=== PATIENT | female | born 1960 | race Caucasian/White ===

== ENCOUNTER → 2016-10-25 | Outpatient (CLI) | payer BC ==
[~2016-10-25] MED LIST: HYDR-5688 PO
[2016-10-25 13:36] LABS: FERRITIN 71.3 ng/ml (8.0-388.0); THYROID STIMULATING HORMONE 2.5 uIu/ml (0.300-4.500)
== END | disposition home or self-care (01) ==
LOC: C.LABMFLN 08:20
PROVIDERS: ATTEND Family Medicine
DX: Z11.59 Encounter for screening for other viral diseases (principal); E03.9 Hypothyroidism, unspecified; L65.9 Nonscarring hair loss, unspecified; R53.83 Other fatigue

== ENCOUNTER → 2016-11-16 | Outpatient (CLI) | payer BC | END | disposition home or self-care (01) | LOC: C.PATHSPEC 17:56 | PROVIDERS: ATTEND Plastic Surgery | DX: D17.23 Benign lipomatous neoplasm of skin and subcutaneous tissue of right leg (principal); D17.39 Benign lipomatous neoplasm of skin and subcutaneous tissue of other sites ==

== ENCOUNTER → 2016-11-30 | Outpatient (CLI) | payer BC | END | disposition home or self-care (01) | LOC: C.PATHSPEC 10:12 | PROVIDERS: ATTEND Plastic Surgery | DX: D17.24 Benign lipomatous neoplasm of skin and subcutaneous tissue of left leg (principal) ==

== ENCOUNTER → 2017-11-07 | Outpatient (CLI) | payer BC ==
[2017-11-07 12:46] LABS: BASO % 1.2 %; BASO ABS # 0.07 K/uL (0-0.2); EOS % 2.3 %; EOS ABS # 0.14 K/uL (0-0.5); HEMATOCRIT 39.6 % (37-47); HEMOGLOBIN 12.9 g/dL (12.0-16.0); IG# 0.02 K/uL (0.00-0.02); LYMPH % 21.6 %; LYMPH ABS # 1.29 K/uL (1.2-3.4); MEAN CELL VOLUME 92.1 fL (80-100); MEAN CORPUSCULAR HGB CONC 32.6 g/dl (32-36); MEAN PLATELET VOLUME 9.9 fL (7.4-10.4); MONO % 7.7 %; MONO ABS # 0.46 K/uL (0.11-0.59); NEUT % 66.9 %; PLATELET COUNT 311 K/uL (130-400); RED CELL DISTRIBUTION WIDTH CV 12.8 % (11.5-14.5); RED CELL DISTRIBUTION WIDTH SD 43.4 fL (36.4-46.3); WHITE BLOOD COUNT 5.98 K/uL (4.8-10.8)
[2017-11-07 13:26] LABS: ALBUMIN 3.6 gm/dl (3.4-5.0); ALKALINE PHOSPHATASE 60 U/L (45-117); ALT/SGPT 43 U/L (12-78); AST/SGOT 28 U/L (15-37); BLOOD UREA NITROGEN 18 mg/dl (7-18); CALCIUM 8.7 mg/dl (8.5-10.1); CARBON DIOXIDE 26 mmol/L (21-32); CHOLESTEROL 248 mg/dl (0-200); GLUCOSE 104 mg/dl (70-99); LDL CHOLESTEROL CALCULATED 141 mg/dl; SODIUM 138 mmol/L (136-145); TOTAL PROTEIN 7.2 gm/dl (6.4-8.2)
== END | disposition home or self-care (01) ==
LOC: C.LABMFLN 08:46
PROVIDERS: ATTEND Family Medicine
DX: J45.909 Unspecified asthma, uncomplicated (principal); E78.5 Hyperlipidemia, unspecified; E03.9 Hypothyroidism, unspecified; E55.9 Vitamin D deficiency, unspecified

== ENCOUNTER → 2018-01-21 | Outpatient (CLI) | payer BC | END | disposition home or self-care (01) | LOC: C.LABMFLN 15:34 | PROVIDERS: ATTEND Family Medicine | DX: R19.7 Diarrhea, unspecified (principal) ==

== ENCOUNTER 2020-12-25 07:43 | Observation (INO) ==
--- NOTE | 2020-12-17 13:32 | PAT Medication Instructions ---
Medication Instructions Date of Service December 17, 2020 Home Medications Medication Instructions Recorded levothyroxine 25 mcg tablet 25 mcg PO QAM #90 tab 11/15/20 fluticasone propionate 50 mcg/actuation nasal spray,suspension 2 sprays INTNAS DAILY PRN loratadine-pseudoephedrine ER 10 mg-240 mg tablet,extended [id number] 1 tab PO QAM PRN celecoxib [Celebrex] 200 mg PO QAM levothyroxine 25 mcg tablet 25 mcg PO QAM pantoprazole 40 mg PO QAM ASK your surgeon for instructions celecoxib [Celebrex] 200 mg PO QAM DO NOT take the morning of surgery loratadine-pseudoephedrine ER 10 mg-240 mg tablet,extended [id number] 1 tab PO QAM PRN Take morning of surgery With a small sip of water, OTHERWISE NOTHING TO EAT OR DRINK AFTER MIDNIGHT: fluticasone propionate 50 mcg/actuation nasal spray,suspension 2 sprays INTNAS DAILY PRN (if needed) levothyroxine 25 mcg tablet 25 mcg PO QAM pantoprazole 40 mg PO QAM Take evening before surgery fluticasone propionate 50 mcg/actuation nasal spray,suspension 2 sprays INTNAS DAILY PRN (if needed) loratadine-pseudoephedrine ER 10 mg-240 mg tablet,extended [id number] 1 tab PO QAM PRN (if needed) Other Notes If you have any questions please call us at [phone] or [phone] or [phone] or [phone]
--- NOTE | 2020-12-22 11:05 | Anesthesiology Consultation ---
Date of Service December 22, 2020 Assessment & Plan (1) Encounter for pre-operative examination: - COVID screening: Per assessment on 12/22: Travel screen- Lives in [facility]. Travel to [facility] for doctor appts. Child travels to [facility] for school 4 days/week. Uses PPE. Patient fully vaccinated. No known COVID-19 positive contacts or current COVID-19 related symptoms. Surgeon arranged preop COVID testing (done 12/21 at surgeon's office). Awaiting results. - S/P Right robotic thoracoscopy w/biopsy, Wedge resection (06/09/20): GA with double lumen at [facility] without issue (lung biopsy dx fibrosis) - Pulmonary visit (04/29/20): "We did discuss that she could either wait until she was recovered from her knee surgery to have the surgical lung biopsy or delay her knee surgery. She has elected to delay her knee replacement until her lung disease is resolved." > Patient subsequently had lung biopsy done and f/u with pulmonary (07/20/20): "Interstitial lung disease: Biopsy consistent with chronic aspiration. Recommend GI referral. Will add Carafate to her regiment. Recommend elevating head of bed when she sleeps at night. Additional recommen dations per GI regarding her hiatal hernia. We will plan on seeing her back in 6 months with follow-up PFTs. Dyspnea: Likely multifactorial due to commendations of ILD, deconditioning, and weight. Exercise and weight loss recommended." Patient referred to GI and EGD done (08/19/20) noting non-obst ructing schatzki ring (dilated), small hiatal hernia, non-bleeding gastric ulcers. Case reviewed with Dr. Wilson- he feels that no further pulmonary testing and/or evaluation needed prior to surgery from his perspective. - S/P EGD (08/19/20): MAC sedation at [facility] Chart Review Chart Review: Acceptable Risk for Surgery and Patient seen in Pre Admission Testing Teaching & Discussion Pre-Anesthesia Teaching/Discussion Notes: Instructed NPO after midnight before surgery,except medications with 15 cc of water. Medication instructions provided according to the PAT guidelines. History Surgery Operation Date: 12/25/20 07:00 Proposed Procedures p Right Total Knee Arthroplasty - Joshua De Jesus MD Height/Weight Height: 5 ft 7 in Weight: 104 kg Allergies Allergy/AdvReac Type Severity Reaction Status Date / Time adhesive Allergy Severe "Allergic Verified 12/22/20 11:14 shock/sepsis" with latex adhesive latex Allergy Severe "Allergic Verified 12/22/20 11:14 shock/sepsis", rash, fever fentanyl AdvReac Severe A. fib Verified 12/17/20 13:30 codeine AdvReac Mild Nausea, Verified 12/17/20 13:30 headache POLYMORES AND MOLYMORES Allergy Intermediate Swelling, Uncoded 12/17/20 13:30 fever, nausea NARCOTICS AdvReac Severe Fentanyl > Uncoded 12/17/20 13:30 a. fib Medications Home Medications Medication Instructions Recorded Confirmed Last Taken fluticasone propionate 50 2 sprays INTNAS DAILY PRN ml 03/26/20 12/15/20 Unknown mcg/actuation nasal spray,suspension loratadine-pseudoephedrine ER 10 1 tab PO QAM PRN tab 03/26/20 12/15/2008/08 mg-240 mg tablet,extended [id number] celecoxib [Celebrex] 200 mg PO QAM 04/22/20 12/15/20 08/18/20 levothyroxine 25 mcg tablet 25 mcg PO QAM #90 tab 11/15/20 12/15/20 Unknown pantoprazole 40 mg PO QAM 12/15/20 12/15/20 Unknown Past Medical History Medical History Acid reflux controlled Atrial fibrillation ? remote episode 2018 in setting of significant illness/sepsis; possible medication/fentanyl reaction per patient (no a. fib noted per [facility] reviewed records from this admission > discharge summary scanned into [employer]), no recurrence/NSR on most recent EKG Thapa esophagus History of sepsis 2017 (fall > non-healing right freeman wound/delayed healing) Hypothyroidism Interstitial lung disease Follows with [facility] Pulmonary Obesity Pulmonary fibrosis Follows with [facility] Pulmonary Exercise / Class Metabolic Activity III < 4 Walking/Shop/Light housework Past Family History Family History Father Alzheimer disease Family hx colonic polyps Mother Pulmonary fibrosis Hypothyroidism Family history of reaction to anesthesia difficulty waking Past Surgical History Surgical History H/O breast surgery excision lipoma H/O colonoscopy History of esophageal dilatation x1 History of esophagogastroduodenoscopy (EGD) EGD: 08/19/20: MAC sedation at [facility] History of lung biopsy Right robotic thoracoscopy w/biopsy, Wedge resection (06/09/20): GA with double lumen at [facility] without issue (lung biopsy dx fibrosis) S/P sinus surgery S/P tonsillectomy Past Anesthesia History No Family Hx of Anesthesia Complications (except mother ("slow to wake" x1 episode with shoulder surgery)) and Other ("slow to wake" x1 episode (sinus surgery)) History of PONV History of PONV and Hx of Motion Sickness Social History Smoking Status: Former smoker Smoking cigarettes per day: Quit 30 years ago (hx tobacco use 3 years) Do You Dip or Chew Tobacco: No Hx Alcohol Use: Yes Alcohol type: wine and other alcohol intake frequency: a few times a month ("one greenlandic coffee once a week") Hx Substance Use: No substance use type: does not use Review of Systems Patient denies chest pain, shortness of breath, fever, chills, cough, wheezing, palpitations. Physical Exam Vital Signs VITALS BP 138/81 P 70 TEMP 97.9 SP02 99%RA RESP 16 PHYSICAL Full neck and c-spine range of motion. Full TMJ range of motion. TMD 3 finger breaths Mallampati Score 3 Dentition: intact, + upper front crown, bridge on right lower side Lungs: course breath sounds throughout Cardiac: regular rate and rhythm, no murmurs noted Spine: normal Carotid arteries: negative bruit Extremities: no edema Testing Laboratory Results 12/22/20 11:32 12/22/20 11:32 PT 9.7 Seconds (9.0-12.0) 12/22/20 11:32 INR 1.0 (0.9-1.1) 12/22/20 11:32 APTT 25.4 Seconds (21.0-31.0) 12/22/20 11:32 Hemoglobin A1c 5.7 % (4.5-5.6) H 12/22/20 11:32 Urine Color Yellow 12/22/20 11:32 Urine Appearance Clear (Clear) 12/22/20 11:32 Urine pH 7.0 (4.5-7.5) 12/22/20 11:32 Ur Specific [place] 1.014 (1.000-1.030) 12/22/20 11:32 Urine Protein Negative (Negative) 12/22/20 11:32 Urine Glucose (UA) Negative (Negative) 12/22/20 11:32 Urine Ketones Negative (Negative) 12/22/20 11:32 Urine Nitrite Negative (Negative) 12/22/20 11:32 Ur Leukocyte Esterase Negative (Negative) 12/22/20 11:32 Blood Type A Positive 12/22/20 11:32 Antibody Screen NEGATIVE 12/22/20 11:32 Electrocardiogram Date: 04/27/20 Findings: + NSR @ (64) Chest X-Ray Date: 12/22/20 FINDINGS: The heart is the upper limits of normal in size. There is underlying chronic lung disease with bilateral interstitial opacities with a peripheral distribution. There is no acute parenchymal consolidation. There is no failure. There are no significant pleural effusions. IMPRESSION: Suspected underlying chronic interstitial lung disease. No acute findings Pulmonary Function Test Date: 03/16/20 FEV1 is 2.54 L or 100% predicted with an FVC of 2.86 L or 89% predicted. No change after administration of bronchodilators. Lung volumes showed a total lung capacity of 86% predicted with an FRC of 71% predicted and an RV of 74% predicted. Diffusion capacity is 79% predicted not adjusted for hemoglobin.
--- NOTE | 2020-12-22 12:05 | XRay Report ---
XR chest Pre-admission PA/Lat CLINICAL HISTORY: Preoperative chest COMPARISON STUDY: Outside chest CT dated 04/21/2020 FINDINGS: The heart is the upper limits of normal in size. There is underlying chronic lung disease w ith bilateral interstitial opacities with a peripheral distribution. There is no acute parenchymal co nsolidation. There is no failure. There are no significant pleural effusions.[ IMPRESSION: Suspected underlying chronic interstitial lung disease. No acute findings ACT 112: Negative or not required by law. Electronically signed by: Mamadou Leos M.D. 12/22/2020 12:03 PM
[2020-12-22 12:40] LABS: Appearance Urine Clear (Clear); Basophils # (auto) 0.06 K/uL (0-0.2); Basophils % (auto) 1.2 %; Bilirubin Urine Negative (Negative); Blood Urine Negative (Negative); Color Urine Yellow; Eosinophils # (auto) 0.15 K/uL (0-0.5); Eosinophils % (auto) 2.9 %; Glucose Urine UA Negative (Negative); Hematocrit (blood only) 41.3 % (37-47); Hemoglobin 14.4 g/dL (12.0-16.0); Immature Granulocytes # (auto) 0.01 K/uL (0.00-0.02); Immature Granulocytes % (auto) 0.2 %; Ketones Urine Negative (Negative); Leukocyte Esterase Urine Negative (Negative); Lymphocytes # (auto) 1.25 K/uL (1.2-3.4); Lymphocytes % (auto) 24.4 %; Mean Corpuscular Hemoglobin 31.1 pg (25-34); Mean Corpuscular Hgb Conc 34.9 g/dL (32-36); Mean Corpuscular Volume 89.2 fL (80-100); Monocytes # (auto) 0.34 K/uL (0.11-0.59); Monocytes % (auto) 6.6 %; Neutrophils # (auto) 3.31 K/uL (1.4-6.5); Neutrophils % (auto) 64.7 %; Nitrite Urine Negative (Negative); Platelet Count 351 K/uL (130-400); Protein Urine Negative (Negative); RDW Coefficient of Variation 13.3 % (11.5-14.5); RDW Standard Deviation 43.5 fL (36.4-46.3); Red Blood Count 4.63 M/uL (4.2-5.4); Specific Gravity Urine 1.014 (1.000-1.030); Urobilinogen Urine Negative (Negative); White Blood Count 5.12 K/uL (4.8-10.8)
[2020-12-22 12:50] LABS: Albumin Level 3.9 gm/dl (3.4-5.0); BUN Creatinine Ratio 32.1 (10-20); Calcium 9.6 mg/dl (8.5-10.1); Creatinine Clr Calc Pharmacy 87.3 ml/min; Est GFR (African American) 86.3; Est GFR (Non-African American) 74.5
[2020-12-22 12:58] LABS: Partial Thromboplastin Time 25.4 Seconds (21.0-31.0); Prothrombin Time 9.7 Seconds (9.0-12.0)
[2020-12-22 13:23] LABS: Estimated Average Glucose 117 mg/dl; Hemoglobin A1C 5.7 % (4.5-5.6)
--- NOTE | 2020-12-23 18:49 | History & Physical Report ---
Date of Service December 23, 2020 Assessment & Plan (1) Primary osteoarthritis of right knee: Treatment options discussed with patient. She has failed conservative measures. She would like to proceed with surgical intervention. Risks, benefits and alternatives to surgery including but not limited to infection, DVT, pain, stiffness, need for revision surgery, damage to blood vessels, damage to nerves, PE, , were discussed with the patient and they wish to proceed. Plan for right total knee arthroplasty at [facility] on 12/25/20. Will plan on OPPT post discharge from the hospital. Will plan on ASA 81mg BID x 1 mo post op for DVT prophylaxis. All questions answered. She will follow up post operatively. History of Present Illness Chief Complaint: Right knee pain Primary Care Provider: Lesa Varela MD 60 year old female with PMHx of hypothyroidism, GERD, interstitial lung disease, and breast Ca presents with R>L left knee pain. Pain is interfering with her ability to carry out daily activity. She has failed conservative measures including oral medications, bracing, and injection. She would like to proceed with right knee replacement. Patient denies headaches, sweats, fevers, chills, double vision, blurred vision, cough, sore throat, dysphagia, chest pain, sob, wheezing, n/v/d/c, numbness, tingling, fatigue, urinary symptoms, mood disorders. ROS positive for bilateral knee pain and stiffness. Allergies Allergy/AdvReac Type Severity Reaction Status Date / Time adhesive Allergy Severe "Allergic Verified 12/22/20 11:14 shock/sepsis" with latex adhesive latex Allergy Severe "Allergic Verified 12/22/20 11:14 shock/sepsis", rash, fever fentanyl AdvReac Severe A. fib Verified 12/17/20 13:30 codeine AdvReac Mild Nausea, Verified 12/17/20 13:30 headache POLYMORES AND MOLYMORES Allergy Intermediate Swelling, Uncoded 12/17/20 13:30 fever, nausea NARCOTICS AdvReac Severe Fentanyl > Uncoded 12/17/20 13:30 a. fib Home Medications Medication Instructions Recorded Confirmed Type fluticasone propionate 50 2 sprays INTNAS DAILY PRN ml 03/26/20 12/15/20 History mcg/actuation nasal spray,suspension loratadine-pseudoephedrine ER 10 1 tab PO QAM PRN tab 03/26/20 12/15/20 History mg-240 mg tablet,extended [id number] celecoxib [Celebrex] 200 mg PO QAM 04/22/20 12/15/20 History levothyroxine 25 mcg tablet 25 mcg PO QAM #90 tab 11/15/20 12/15/20 Rx pantoprazole 40 mg PO QAM 12/15/20 12/15/20 History Past Med/Surg History Medical History Acid reflux controlled Atrial fibrillation ? remote episode 2018 in setting of significant illness/sepsis; possible medication/fentanyl reaction per patient (no a. fib noted per [facility] reviewed records from this admission > discharge summary scanned into [employer]), no recurrence/NSR on most recent EKG Thapa esophagus History of sepsis 2018 (fall > non-healing right freeman wound/delayed healing) Hypothyroidism Interstitial lung disease Follows with [facility] Pulmonary Obesity Pulmonary fibrosis Follows with [facility] Pulmonary Surgical History H/O breast surgery excision lipoma H/O colonoscopy History of esophageal dilatation x1 History of esophagogastroduodenoscopy (EGD) EGD: 08/19/20: MAC sedation at [facility] History of lung biopsy Right robotic thoracoscopy w/biopsy, Wedge resection (06/09/20): GA with double lumen at [facility] without issue (lung biopsy dx fibrosis) S/P sinus surgery S/P tonsillectomy Family History Father Alzheimer disease Family hx colonic polyps Mother Pulmonary fibrosis Hypothyroidism Family history of reaction to anesthesia difficulty waking Social History (Updated 01/27/20 @ 15:16 by Lesa Varela MD) Smoking Status: Former smoker Cigarettes Per Day: Quit 30 years ago (hx tobacco use 3 years); Second Hand Exposure: No; Do You Dip or Chew Tobacco: No; Tobacco Cessation Education Requested by Patient: No Hx Alcohol Use: Yes Alcohol type: wine and other Hx Substance Use: No Preferred Language: Estonian Communication Ability: Effective Building Construction Estimator Required: No Beliefs That Will Affect Care: None marital status: Current Living Situation: Significant Other Current Living Situation Comment: PARTNER AND PT ADOPTED DAUGHTER Other Information That Helps Us Care for You: No Feels Safe at Home: Yes Safety Concerns: Feels Safe At This Time Assistive Devices: Contacts and Glasses Review of Systems All systems reviewed & are unremarkable except as noted in HPI & below Physical Exam Constitutional: well developed and well nourished; no acute distress Eyes: PERRL, conjunctivae normal, anicteric sclerae ENMT: external ear and nose normal, oropharynx normal Neck: trachea midline, no thyromegaly Respiratory: normal respiratory effort, lungs clear to auscultation Cardiovascular: RRR, no murmur, no edema Musculoskeletal: Right knee: Mild effusion. Tenderness lateral joint line and patellar facet. Crepitation on ROM. ROM 0-125. Stable to valgus and varus stress. Valgus alignment. Skin: no rashes, warm and dry Neurologic: patellar DTR's 2+ bilat, sensation intact Psychiatric: A+Ox3, euthymic affect Results & Data ([facility]) Laboratory Results Lab Results 12/22/20 12/22/20 12/22/20 Range/Units 11:32 11:32 11:32 WBC 5.12 (4.8-10.8) K/uL RBC 4.63 (4.2-5.4) M/uL Hgb 14.4 (12.0-16.0) g/dL Hct 41.3 (37-47) % MCV 89.2 (80-100) fL MCH 31.1 (25-34) pg MCHC 34.9 (32-36) g/dL RDW Std Deviation 43.5 (36.4-46.3) fL RDW Coeff of Pearl 13.3 (11.5-14.5) % Plt Count 351 (130-400) K/uL MPV 10.0 (7.4-10.4) fL Immature Gran % (Auto) 0.2 % Neut % (Auto) 64.7 % Lymph % (Auto) 24.4 % [place] % (Auto) 6.6 % Eos % (Auto) 2.9 % Baso % (Auto) 1.2 % Neut # (Auto) 3.31 (1.4-6.5) K/uL Lymph # (Auto) 1.25 (1.2-3.4) K/uL [place] # (Auto) 0.34 (0.11-0.59) K/uL Eos # (Auto) 0.15 (0-0.5) K/uL Baso # (Auto) 0.06 (0-0.2) K/uL Immature Gran # (Auto) 0.01 (0.00-0.02) K/uL PT 9.7 (9.0-12.0) Seconds INR 1.0 (0.9-1.1) APTT 25.4 (21.0-31.0) Seconds PTT Ratio 1.0 Sodium (136-145) mmol/L Potassium (3.5-5.1) mmol/L Chloride (98-107) mmol/L Carbon Dioxide (21-32) mmol/L Anion Gap (3-11) BUN (7-18) mg/dl Creatinine (0.6-1.2) mg/dl Est Cr Clr Drug Dosing ml/min Est GFR ( Amer) Est GFR (Non-Af Amer) BUN/Creatinine Ratio (10-20) Glucose (70-99) mg/dl Estimat Average Glucose mg/dl Hemoglobin A1c (4.5-5.6) % Calcium (8.5-10.1) mg/dl Albumin (3.4-5.0) gm/dl Urine Color Urine Appearance (Clear) Urine pH (4.5-7.5) Ur Specific [place] (1.000-1.030) Urine Protein (Negative) Urine Glucose (UA) (Negative) Urine Ketones (Negative) Urine Blood (Negative) Urine Nitrite (Negative) Urine Bilirubin (Negative) Urine Urobilinogen (Negative) Ur Leukocyte Esterase (Negative) Blood Type A Positive Antibody Screen NEGATIVE 12/22/20 12/22/20 12/22/20 Range/Units 11:32 11:32 11:32 WBC (4.8-10.8) K/uL RBC (4.2-5.4) M/uL Hgb (12.0-16.0) g/dL Hct (37-47) % MCV (80-100) fL MCH (25-34) pg MCHC (32-36) g/dL RDW Std Deviation (36.4-46.3) fL RDW Coeff of Pearl (11.5-14.5) % Plt Count (130-400) K/uL MPV (7.4-10.4) fL Immature Gran % (Auto) % Neut % (Auto) % Lymph % (Auto) % [place] % (Auto) % Eos % (Auto) % Baso % (Auto) % Neut # (Auto) (1.4-6.5) K/uL Lymph # (Auto) (1.2-3.4) K/uL [place] # (Auto) (0.11-0.59) K/uL Eos # (Auto) (0-0.5) K/uL Baso # (Auto) (0-0.2) K/uL Immature Gran # (Auto) (0.00-0.02) K/uL PT (9.0-12.0) Seconds INR (0.9-1.1) APTT (21.0-31.0) Seconds PTT Ratio Sodium 137 (136-145) mmol/L Potassium 4.0 (3.5-5.1) mmol/L Chloride 103 (98-107) mmol/L Carbon Dioxide 31 (21-32) mmol/L Anion Gap 3.0 (3-11) BUN 27 H (7-18) mg/dl Creatinine 0.85 (0.6-1.2) mg/dl Est Cr Clr Drug Dosing 87.3 ml/min Est GFR ( Amer) 86.3 Est GFR (Non-Af Amer) 74.5 BUN/Creatinine Ratio 32.1 H (10-20) Glucose 95 (70-99) mg/dl Estimat Average Glucose 117 mg/dl Hemoglobin A1c 5.7 H (4.5-5.6) % Calcium 9.6 (8.5-10.1) mg/dl Albumin 3.9 (3.4-5.0) gm/dl Urine Color Yellow Urine Appearance Clear (Clear) Urine pH 7.0 (4.5-7.5) Ur Specific [place] 1.014 (1.000-1.030) Urine Protein Negative (Negative) Urine Glucose (UA) Negative (Negative) Urine Ketones Negative (Negative) Urine Blood Negative (Negative) Urine Nitrite Negative (Negative) Urine Bilirubin Negative (Negative) Urine Urobilinogen Negative (Negative) Ur Leukocyte Esterase Negative (Negative) Blood Type Antibody Screen Diagnostic Findings Right knee radiographs: Bone on bone lateral compartment with subluxation of tibia on femur. Bone on bone patellofemoral compartment. Periarticular osteophyte formation and subchondral sclerosis.
[~2020-12-25 07:43] MED LIST changes: +ACETAMINOPHEN 500 MG TAB PO SCH; +BACITRACIN INJ 50,000 UNIT VIAL ONE; +CeleBREX 200 MG CAP PO SCH; +FAMOTIDINE 20 MG TAB PO SCH; +GABAPENTIN 600 MG DOSE PO SCH; -HYDR-5688 PO; +LR 500ML BOLUS, THEN 15ML/HR IV SCH; +METOCLOPRAMIDE HCL 10 MG TABLET PO SCH; +TRANEXAMIC ACID 1,000 MG **IV Intra-op IV SCH; +TRANEXAMIC ACID 1,000 MG **IV Pre-op IV SCH; +ceFAZolin 2000MG 2,000 MG/15 ML SYR IV SCH; +dexAMETHasone 4 MG TAB PO SCH
[2020-12-25] MEDS ORDERED: ROPIVACAINE 0.5% HCL/PF 150 MG, BUPIVACAINE 0.75% MPF 20 ML, EPINEPHrine 30MG/30ML (OR ... INFIL SCH (07:45)
[2020-12-25] MEDS ORDERED: ATROPINE SULFATE 0.1 MG/ML 10ML SYR IV PRN (08:40)
[2020-12-25] MEDS ORDERED: ePHEDrine sulfate 50 MG/ML AMP IV PRN (08:40)
[2020-12-25] MEDS ORDERED: ONDANSETRON INJ 2 MG/ML 2 ML VIAL IV PRN (08:40)
[2020-12-25] MEDS ORDERED: HYDROmorphone INJ 2 MG/ML SYR/VIAL IV PRN (08:40)
[2020-12-25] MEDS ORDERED: PROMETHAZINE HCL 12.5 MG in SODIUM CHLORIDE 0.9% 50 ML IV PRN (08:40)
[2020-12-25] MEDS ORDERED: MIDAZOLAM HCL 1 MG/ML 2ML VIAL ONE (08:49)
[2020-12-25] MEDS ORDERED: BUPIVACAINE 0.5 % 5 MG/1 ML PF 10ML VIAL ONE (08:52)
[2020-12-25] MEDS ORDERED: BUPIVACAINE 0.5 % 5 MG/1 ML MPF 30ML VIAL ONE (08:52)
[2020-12-25] MEDS ORDERED: LIDOCAINE HCL 2% 2 ML VIAL/AMP(20MG/ML) INFIL ONE (09:13)
[2020-12-25] MEDS ORDERED: PROPOFOL IV EMULSION 10 MG/ML 20 ML VIAL IV ONE (09:13)
--- NOTE | 2020-12-25 09:37 | History & Physical Bridge Note ---
Date of Service December 25, 2020 History & Physical Bridge Note I have examined the patient, reviewed the History & Physical and in the interval since the performance of the History & Physical I have noted the following changes of clinical significance: no changes noted
[2020-12-25] MEDS ORDERED: HYDROmorphone INJ 2 MG/ML SYR/VIAL ONE ×2 (10:15→12:12)
[2020-12-25] MEDS ORDERED: DEXAMETHASONE SOD INJ 4 MG/ML VIAL ONE (10:35)
[2020-12-25] MEDS ORDERED: ONDANSETRON INJ 2 MG/ML 2 ML VIAL ONE (10:35)
[2020-12-25] MEDS ORDERED: CITRIC ACID/SODIUM CITRATE 15 ML UDC ONE (12:21)
--- NOTE | 2020-12-25 12:31 | Post Operative Brief Note ---
Immediate Post Op Note v1 Date of Surgery December 25, 2020 Pre & Post Diagnosis Operation Date: 12/25/20 09:20 Pre-Op Diagnosis: Primary Osteoarthritis Knee Right, obesity BMI 36.2 Post-Op Diagnosis: Primary Osteoarthritis Knee Right, obesity BMI 36.2 I identified the patient and participated in the time-out.: Yes Procedure Operation Date: 12/25/20 09:20 Actual Procedures p Right Total Knee Arthroplasty - Joshua De Jesus MD Surgeon Joshua De Jesus MD Nanotechnology Technician Ricky CHAPMAN Estimated Blood Loss 5 Findings Consistent with Post-Op Diagnosis Specimens Bone cuts Drains Hemovac Drain Anesthesia Type General Regional Complications none Disposition Accompanied Patient To Recovery: No Disposition: Recovery Room Overlapping Procedure I was immediately available: during the entire case.
--- NOTE | 2020-12-25 12:37 | Operative Report ---
Post Operative Report Pre & Post Diagnosis Operation Date: 12/25/20 09:20 Pre-Op Diagnosis: Primary Osteoarthritis Knee Right, obesity 36.2 Post-Op Diagnosis: Primary Osteoarthritis Knee Right, obesity 36.2 I identified the patient and participated in the time-out.: Yes Procedure Operation Date: 12/25/20 09:20 Actual Procedures p Right Total Knee Arthroplasty, lateral release- Joshua De Jesus MD Surgeon Joshua De Jesus MD Glue Cook Ricky CHAPMAN Estimated Blood Loss 5 Findings Consistent with Post-Op Diagnosis Specimens Bone cuts Drains 2 Hemovac Anesthesia Type General Regional Complications none Disposition Accompanied Patient To Recovery: No Disposition: Recovery Room Indications 60-year-old female with advanced bilateral knee osteoarthritis failed conservative management. She advanced patellofemoral and lateral compartment osteoarthritis both of her knees. She has had extensive conservative management. Description of Procedure Patient taken to the operating room the size under adductor nerve block and general anesthesia. Patient was placed supine on the operating table. A pneum atic tourniquet was placed about the obese right upper thigh. The right lower extremity was prepped and draped in sterile fashion. Knee exam demonstrated about 5 to 10 degrees of hyperextension and full range of motion in flexion neutral to valgus knee with patellofemoral crepitation and obese knee. There was some effusion moderate. The leg was elevated exsanguinated with an Esmarch bandage and pneumatic tourniquet was raised to 350 millimeters of mercury. Skin incised sharply in longitudinal fashion. Subcutaneous flaps elevated. Incision was made through the medial retinaculum extending up in the mid third of the quadriceps tendon and down to the medial tibial tubercle. Intra-articular findings demonstrated severe tricompartmental osteoarthritis some ligamentous laxity of the MCL complex lateral meniscus tear grade 4 osteoarthritis lateral compartment grade 4 osteoarthritis patellofemoral joint. The [employer] total knee arthroplasty system was used. To expose the knee the infrapatellar fat pad was resected. The medial meniscus and lateral meniscal remnants and cruciate ligaments were resected. The anterior fat pad over the femur in the area of the anterior flange of the femoral component was resected. Lateral synovial bands were released. The femur was exposed. An intramedullary drill hole was made into the canal. A guide kamla was placed. Distal femoral cutting guide was adjusted to resect a 5 degree valgus cut with 8 millimeters distal femur resected. The knee was extended and a subperiosteal peel lateral release was performed around the patella. Patella width was measured and width was reproduced using a freehand cut technique and a 31 x 9 symmetrical patella component. The 3 drill holes were made and the excess lateral facet was beveled off to prevent any impingement. Attention was taken back to the femur which was exposed with retractors and the femoral sizing guide was pinned in position. The drill holes were placed in 3 of external rotation to match epicondylar axis. There was a hypoplastic lateral femoral condyle also did slightly externally rotate the guide more than the 3 degrees to match the epicondylar axis. Femur sized for a 4 posterior stabilized component. The 4-in-1 cutting block was placed and then the anterior posterior and chamfer cuts are made. The tibia was then subluxed. The external tibial cutting guide was just to make a perpendicular cut to the long axis of the tibia below the most deficient bone loss side. A lamina powder hand was used and the flexion extension gaps were balanced. This required partial subperiosteal release of the IT band on the lateral tibia and some lateral capsule release off the tibia. All posterior osteophytes removed. All meniscal remnants were resected. The tibia exposed and the trial tibial component size 3 was externally rotated in line with the tibial tubercle and pinned in position. The punch for stem was used. The notch cutting device was centered appropriately and the femoral notch cut was made. The femoral trial was inserted. Trial tibial inserts were placed and size 13 mm posterior stabilized gave balanced ligaments through flexion and extension. Patella tracking was assessed. The patella tracked some slight liftoff so I did a lateral release leaving the synovium intact and this corrected the patella tracking to central through full range of motion no hands technique.. The trial components were then removed and the orthomix anesthetic cocktail was injected per protocol. The knee was then copiously irrigated with pulsatile lavage anti biotic solution. Final components were then cemented with Simplex cement. Final components were Nicky triathlon posterior stabilized femoral component size 4 right, size 3 primary tibial baseplate, 3 x 13 mm X3 polyethylene tibial bearing insert for posterior stabilized knee, S 31 x 9 X3 polyethylene patella. After the cement cured the Betadine soak was used per protocol. further pulsatile lavage irrigation was then performed and 2 Hemovac drains were brought out laterally. The quadriceps tendon and medial retinaculum were closed with figure of 8 #1 Vicryl sutures. The knee was taken through full range of motion and the repair was secure. The subcutaneous tissues were closed with 2-0 Vicryl sutures. Skin was closed with gabino. Sterile dressings were applied. Patient procedure well. Ricky CHAPMAN was my physician hospital medical assistant who assisted in patient positioning prepping and draping,leg positioning ,soft tissue retraction and instrument management and participated in the closing and will participate in postoperative care of the patient. The patient tolerated the procedure well. I attest to the content of the Intraoperative Record and any orders documented therein. Any exceptions are noted below.
--- NOTE | 2020-12-25 13:00 | XRay Report ---
RIGHT KNEE 2 VIEWS History: Right total knee arthroplasty. Degenerative arthritis. Postop. FINDINGS: The patient is status post a right total knee arthroplasty. The hardware is intact. No frac ture or dislocation. Skin gabino and surgical drains are in place. IMPRESSION: Right total knee arthroplasty. No evidence for hardware complication. ACT 112: Negative or not required by law. Electronically signed by: Brenton Garcia M.D. 12/25/2020 12:58 PM
--- NOTE | 2020-12-25 13:55 | Anesthesiology Progress Note ---
Date of Service December 25, 2020 Anesthesia Post Procedure Vital Signs Vital Signs: Temp Pulse Resp BP Pulse Ox 12/25/20 13:27 85 15 143/64 H 96 12/25/20 13:17 36.8 C 83 14 128/65 98 12/25/20 13:07 87 14 133/68 96 12/25/20 12:57 83 22 132/69 99 12/25/20 12:47 83 20 137/78 100 12/25/20 12:37 37.1 C 87 20 128/60 97 12/25/20 08:06 36.6 C 76 20 164/85 H 95 Transfer of Care Handoff Completed per policy Notes Mental Status: alert / awake / arousable and participated in evaluation Patient Amnestic to Procedure: Yes Nausea / Vomiting: adequately controlled Pain: adequately controlled Airway Patency, RR, SpO2: stable & adequate BP & HR: stable & adequate Hydration State: stable & adequate Anesthetic Complications: no major complications apparent and Pt Satisfied with anesthetic care
[2020-12-25] MEDS ORDERED: MAGNESIUM HYDROXIDE SUSP 30 ML UDC PO PRN (14:07)
[2020-12-25] MEDS ORDERED: bisacodyL 10 MG SUPP PR PRN (14:07)
[2020-12-25] MEDS ORDERED: NALOXONE HCL 0.4 MG/1 ML VIAL/CARP IV PRN (14:07)
[2020-12-25] MEDS ORDERED: METOCLOPRAMIDE HCL INJ 5 MG/ML 2 ML VIAL IV PRN (14:07)
[2020-12-25] MEDS ORDERED: HYDROmorphone INJ 0.5 MG/0.5 ML SYR IV PRN (14:07)
[2020-12-25] MEDS ORDERED: FLUTICASONE PROPIONATE NA SPR 16 GM BTL PRN (14:07)
[2020-12-25] MEDS: SODIUM CHLORIDE 0.9% 1000ML 1,000 ML IV SCH (15:46)
[2020-12-25] MEDS: HYDROCODONE/ACETAMOPHEN 5/325MG TAB PO PRN (17:23)
[2020-12-25] MEDS: ceFAZolin 2000MG 2,000 MG/15 ML SYR IV SCH (17:24)
[2020-12-25] MEDS: ONDANSETRON INJ 2 MG/ML 2 ML VIAL IV PRN (18:12)
[2020-12-25] MEDS: ASPIRIN 81 MG ECTAB PO SCH (20:27)
[2020-12-25] MEDS: CeleBREX 200 MG CAP PO SCH (20:27)
[2020-12-25] MEDS: DOCUSATE SODIUM 100 MG CAP PO SCH (20:27)
[2020-12-25] MEDS ORDERED: SENNA 8.6 MG TAB PO SCH (21:00)
[2020-12-26] MEDS: ceFAZolin 2000MG 2,000 MG/15 ML SYR IV SCH (01:03)
[2020-12-26] MEDS: ONDANSETRON INJ 2 MG/ML 2 ML VIAL IV PRN ×2 (01:03→08:13)
[2020-12-26] MEDS: SODIUM CHLORIDE 0.9% 1000ML 1,000 ML IV SCH (01:03)
[2020-12-26 06:14] LABS: Hemoglobin 10.5 g/dL (12.0-16.0); Mean Corpuscular Hemoglobin 29.9 pg (25-34); Mean Corpuscular Hgb Conc 32.8 g/dL (32-36); Mean Corpuscular Volume 91.2 fL (80-100); Mean Platelet Volume 9.7 fL (7.4-10.4); Platelet Count 247 K/uL (130-400); RDW Coefficient of Variation 13.7 % (11.5-14.5); RDW Standard Deviation 45.4 fL (36.4-46.3); Red Blood Count 3.51 M/uL (4.2-5.4); White Blood Count 9.74 K/uL (4.8-10.8)
[2020-12-26] MEDS ORDERED: LEVOTHYROXINE SODIUM 25 MCG TABLET PO SCH (06:30)
[2020-12-26 06:38] LABS: BUN Creatinine Ratio 25.4 (10-20); Calcium 7.9 mg/dl (8.5-10.1); Creatinine Clr Calc Pharmacy 122.1 ml/min; Est GFR (African American) 114.2; Est GFR (Non-African American) 98.5; Potassium 3.9 mmol/L (3.5-5.1)
[2020-12-26] MEDS ORDERED: PANTOprazole 40 MG TAB PO SCH (09:00)
[2020-12-26] MEDS ORDERED: MULTIVITAMIN TAB PO SCH (09:00)
--- NOTE | 2020-12-26 09:35 | Orthopedic Progress Note ---
Date of Service December 26, 2020 Assessment & Plan (1) Status post right knee replacement: Admission and Anticipated Discharge Date Admission Date: 60 yo female stable POD #1 s/p right TKA 1. Med management 2. DVT prophylaxis- ASA, SCDs 3. PT/OT 4. D/C planning- home w/ OPPT Subjective Pt resting in bed, pain controlled, denies complaints Physical Exam Physical Exam: Toes mobile, N/V/I, dressing and drain in place Results & Data ([facility]) Vital Signs (Past 12 Hours) Vital Signs Temp Pulse Resp BP Pulse Ox 12/26/20 07:17 36.9 C 81 16 113/71 96 12/26/20 02:30 36.5 C 82 16 113/68 98 12/25/20 22:06 36.4 C L 80 16 148/81 H 93 Laboratory Results 12/26/20 12/26/20 Range/Units 05:31 05:31 WBC 9.74 (4.8-10.8) K/uL RBC 3.51 L (4.2-5.4) M/uL Hgb 10.5 L (12.0-16.0) g/dL Hct 32.0 L (37-47) % MCV 91.2 (80-100) fL MCH 29.9 (25-34) pg MCHC 32.8 (32-36) g/dL RDW Std Deviation 45.4 (36.4-46.3) fL RDW Coeff of Pearl 13.7 (11.5-14.5) % Plt Count 247 (130-400) K/uL MPV 9.7 (7.4-10.4) fL Sodium 141 (136-145) mmol/L Potassium 3.9 (3.5-5.1) mmol/L Chloride 110 H (98-107) mmol/L Carbon Dioxide 26 (21-32) mmol/L Anion Gap 5.0 (3-11) BUN 15 (7-18) mg/dl Creatinine 0.61 (0.6-1.2) mg/dl Est Cr Clr Drug Dosing 122.1 ml/min Est GFR ( Amer) 114.2 Est GFR (Non-Af Amer) 98.5 BUN/Creatinine Ratio 25.4 H (10-20) Glucose 112 H (70-99) mg/dl Calcium 7.9 L (8.5-10.1) mg/dl
[2020-12-26] MEDS: ASPIRIN 81 MG ECTAB PO SCH (10:16)
[2020-12-26] MEDS: DOCUSATE SODIUM 100 MG CAP PO SCH (10:16)
[2020-12-26] MEDS: CeleBREX 200 MG CAP PO SCH (10:17)
[2020-12-26] MEDS: HYDROCODONE/ACETAMOPHEN 5/325MG TAB PO PRN (11:09)
--- NOTE | 2020-12-26 19:27 | Discharge Summary ---
Date of Service December 26, 2020 Admission HPI Per Admitting Provider 60 year old female with PMHx of hypothyroidism, GERD, interstitial lung disease, and breast Ca presents with R>L left knee pain. Pain is interfering with her ability to carry out daily activity. She has failed conservative measures including oral medications, bracing, and injection. She would like to proceed with right knee replacement. Patient denies headaches, sweats, fevers, chills, double vision, blurred vision, cough, sore throat, dysphagia, chest pain, sob, wheezing, n/v/d/c, numbness, tingling, fatigue, urinary symptoms, mood disorders. ROS positive for bilateral knee pain and stiffness. Admission Exam Per Admitting Provider Constitutional: well developed and well nourished; no acute distress Eyes: PERRL, conjunctivae normal, anicteric sclerae ENMT: external ear and nose normal, oropharynx normal Neck: trachea midline, no thyromegaly Respiratory: normal respiratory effort, lungs clear to auscultation Cardiovascular: RRR, no murmur, no edema Musculoskeletal: Right knee: Mild effusion. Tenderness lateral joint line and patellar facet. Crepitation on ROM. ROM 0-125. Stable to valgus and varus stress. Valgus alignment. Skin: no rashes, warm and dry Neurologic: patellar DTR's 2+ bilat, sensation intact Psychiatric: A+Ox3, euthymic affect Principal Diagnosis Right knee osteoarthritis Discharge Exam Toes mobile, N/V/I, dressing and drain in place Constitutional well developed and well nourished; no acute distress Discharge Data Allergies Allergy/AdvReac Type Severity Reaction Status Date / Time adhesive Allergy Severe "Allergic Verified 12/25/20 08:02 shock/sepsis" with latex adhesive latex Allergy Severe "Allergic Verified 12/25/20 08:02 shock/sepsis", rash, fever fentanyl AdvReac Severe A. fib Verified 12/25/20 08:02 codeine AdvReac Mild Nausea, Verified 12/25/20 08:02 headache POLYMORES [employer] MOLYMORES Allergy Intermediate Swelling, Uncoded 12/17/20 13:30 fever, nausea NARCOTICS AdvReac Severe Fentanyl > Uncoded 12/17/20 13:30 a. fib Procedures Performed Operation Date: 12/25/20 09:20 Actual Procedures p Right Total Knee Arthroplasty - Joshua De Jesus MD Ordered Studies 12/25/20 05:00 US - OR guided needle placemen Routine Hospital Course (1) Status post right knee replacement: Patient presented for same day admission following right total knee arthroplasty on 12/25/20. She tolerated procedure well. The Patient had an uneventful hospital course. Post-operatively, her activity was progressed and well tolerated. They participated in PT with ambulation distance of 225 feet. ROM of operative knee reached 100 degrees. Labs remained stable- lowest h emoglobin recorded: 10.5. Pain controlled on oral medications. Please refer to daily progress notes and PT notes for complete details. After exam on 12/26/20, patient was felt to be stable for discharge home with plans on outpatient PT. Patient will f/u in the office in about 2 weeks for further evaluation including x-rays and incision check, sooner if having any issues or concerns. Lab Results 12/22/20 12/22/20 12/22/20 Range/Units 11:32 11:32 11:32 WBC 5.12 (4.8-10.8) K/uL RBC 4.63 (4.2-5.4) M/uL Hgb 14.4 (12.0-16.0) g/dL Hct 41.3 (37-47) % MCV 89.2 (80-100) fL MCH 31.1 (25-34) pg MCHC 34.9 (32-36) g/dL RDW Std Deviation 43.5 (36.4-46.3) fL RDW Coeff of Pearl 13.3 (11.5-14.5) % Plt Count 351 (130-400) K/uL MPV 10.0 (7.4-10.4) fL Immature Gran % (Auto) 0.2 % Neut % (Auto) 64.7 % Lymph % (Auto) 24.4 % [place] % (Auto) 6.6 % Eos % (Auto) 2.9 % Baso % (Auto) 1.2 % Neut # (Auto) 3.31 (1.4-6.5) K/uL Lymph # (Auto) 1.25 (1.2-3.4) K/uL [place] # (Auto) 0.34 (0.11-0.59) K/uL Eos # (Auto) 0.15 (0-0.5) K/uL Baso # (Auto) 0.06 (0-0.2) K/uL Immature Gran # (Auto) 0.01 (0.00-0.02) K/uL PT 9.7 (9.0-12.0) Seconds INR 1.0 (0.9-1.1) APTT 25.4 (21.0-31.0) Seconds PTT Ratio 1.0 Sodium (136-145) mmol/L Potassium (3.5-5.1) mmol/L Chloride (98-107) mmol/L Carbon Dioxide (21-32) mmol/L Anion Gap (3-11) BUN (7-18) mg/dl Creatinine (0.6-1.2) mg/dl Est Cr Clr Drug Dosing ml/min Est GFR ( Amer) Est GFR (Non-Af Amer) BUN/Creatinine Ratio (10-20) Glucose (70-99) mg/dl Estimat Average Glucose mg/dl Hemoglobin A1c (4.5-5.6) % Calcium (8.5-10.1) mg/dl Albumin (3.4-5.0) gm/dl Urine Color Urine Appearance (Clear) Urine pH (4.5-7.5) Ur Specific [place] (1.000-1.030) Urine Protein (Negative) Urine Glucose (UA) (Negative) Urine Ketones (Negative) Urine Blood (Negative) Urine Nitrite (Negative) Urine Bilirubin (Negative) Urine Urobilinogen (Negative) Ur Leukocyte Esterase (Negative) Blood Type A Positive Antibody Screen NEGATIVE 12/22/20 12/22/20 12/22/20 Range/Units 11:32 11:32 11:32 WBC (4.8-10.8) K/uL RBC (4.2-5.4) M/uL Hgb (12.0-16.0) g/dL Hct (37-47) % MCV (80-100) fL MCH (25-34) pg MCHC (32-36) g/dL RDW Std Deviation (36.4-46.3) fL RDW Coeff of Pearl (11.5-14.5) % Plt Count (130-400) K/uL MPV (7.4-10.4) fL Immature Gran % (Auto) % Neut % (Auto) % Lymph % (Auto) % [place] % (Auto) % Eos % (Auto) % Baso % (Auto) % Neut # (Auto) (1.4-6.5) K/uL Lymph # (Auto) (1.2-3.4) K/uL [place] # (Auto) (0.11-0.59) K/uL Eos # (Auto) (0-0.5) K/uL Baso # (Auto) (0-0.2) K/uL Immature Gran # (Auto) (0.00-0.02) K/uL PT (9.0-12.0) Seconds INR (0.9-1.1) APTT (21.0-31.0) Seconds PTT Ratio Sodium 137 (136-145) mmol/L Potassium 4.0 (3.5-5.1) mmol/L Chloride 103 (98-107) mmol/L Carbon Dioxide 31 (21-32) mmol/L Anion Gap 3.0 (3-11) BUN 27 H (7-18) mg/dl Creatinine 0.85 (0.6-1.2) mg/dl Est Cr Clr Drug Dosing 87.3 ml/min Est GFR ( Amer) 86.3 Est GFR (Non-Af Amer) 74.5 BUN/Creatinine Ratio 32.1 H (10-20) Glucose 95 (70-99) mg/dl Estimat Average Glucose 117 mg/dl Hemoglobin A1c 5.7 H (4.5-5.6) % Calcium 9.6 (8.5-10.1) mg/dl Albumin 3.9 (3.4-5.0) gm/dl Urine Color Yellow Urine Appearance Clear (Clear) Urine pH 7.0 (4.5-7.5) Ur Specific [place] 1.014 (1.000-1.030) Urine Protein Negative (Negative) Urine Glucose (UA) Negative (Negative) Urine Ketones Negative (Negative) Urine Blood Negative (Negative) Urine Nitrite Negative (Negative) Urine Bilirubin Negative (Negative) Urine Urobilinogen Negative (Negative) Ur Leukocyte Esterase Negative (Negative) Blood Type Antibody Screen 12/26/20 12/26/20 Range/Units 05:31 05:31 WBC 9.74 (4.8-10.8) K/uL RBC 3.51 L (4.2-5.4) M/uL Hgb 10.5 L (12.0-16.0) g/dL Hct 32.0 L (37-47) % MCV 91.2 (80-100) fL MCH 29.9 (25-34) pg MCHC 32.8 (32-36) g/dL RDW Std Deviation 45.4 (36.4-46.3) fL RDW Coeff of Pearl 13.7 (11.5-14.5) % Plt Count 247 (130-400) K/uL MPV 9.7 (7.4-10.4) fL Immature Gran % (Auto) % Neut % (Auto) % Lymph % (Auto) % [place] % (Auto) % Eos % (Auto) % Baso % (Auto) % Neut # (Auto) (1.4-6.5) K/uL Lymph # (Auto) (1.2-3.4) K/uL [place] # (Auto) (0.11-0.59) K/uL Eos # (Auto) (0-0.5) K/uL Baso # (Auto) (0-0.2) K/uL Immature Gran # (Auto) (0.00-0.02) K/uL PT (9.0-12.0) Seconds INR (0.9-1.1) APTT (21.0-31.0) Seconds PTT Ratio Sodium 141 (136-145) mmol/L Potassium 3.9 (3.5-5.1) mmol/L Chloride 110 H (98-107) mmol/L Carbon Dioxide 26 (21-32) mmol/L Anion Gap 5.0 (3-11) BUN 15 (7-18) mg/dl Creatinine 0.61 (0.6-1.2) mg/dl Est Cr Clr Drug Dosing 122.1 ml/min Est GFR ( Amer) 114.2 Est GFR (Non-Af Amer) 98.5 BUN/Creatinine Ratio 25.4 H (10-20) Glucose 112 H (70-99) mg/dl Estimat Average Glucose mg/dl Hemoglobin A1c (4.5-5.6) % Calcium 7.9 L (8.5-10.1) mg/dl Albumin (3.4-5.0) gm/dl Urine Color Urine Appearance (Clear) Urine pH (4.5-7.5) Ur Specific [place] (1.000-1.030) Urine Protein (Negative) Urine Glucose (UA) (Negative) Urine Ketones (Negative) Urine Blood (Negative) Urine Nitrite (Negative) Urine Bilirubin (Negative) Urine Urobilinogen (Negative) Ur Leukocyte Esterase (Negative) Blood Type Antibody Screen Total Time Total Time Spent Total Time Spent (In Minutes): 20 Discharge Plan Discharge Items Patient Disposition: Home - Self-Care Reason For Visit: Unilateral Primary Osteoarthritis Knee Right Discharge Diagnosis: Right knee replacement Activity: Per Instructions section Non-emergency contact: Surgeon Call non-emergency contact if: your pain is not controlled, your temperature is above 101.5, your wound has increased redness and your wound has increased drainage Follow-up/Referrals: Lesa Varela MD [Primary Care Provider] - Diet: Regular Addtl Attending Provider Instructions: ACTIVITY RECOMMENDATIONS: SELF CARE INSTRUCTIONS AFTER TOTAL KNEE REPLACEMENT A. You may need to continue a physical therapy program after discharge from the hospital. There are several options available to you. Your doctor will assist you in selecting the best one for you. 1. An out-patient facility 2 to 3 times a week for therapy or home therapy. 2. Continue working on all exercises taught to you in the hospital. Your goals should be to increase bending of your knee to 90 degrees and beyond and to fully straighten your knee. B. You may progress at your own pace from walking with a walker or crutches to a cane; then to no assistive devices. C. Make walking a part of your daily routine. Be up as much as comfortable with rest periods throughout the day. Rest with leg elevation is very important. Use the ice wrap frequently for the first 3-4 weeks. D. There are no restrictions on activities. You may ride in a car, shop, participate in park keeper and all social activities. E. Wear the long elastic stockings (MARGARITA hose) 20 hours a day for 2 weeks after surgery. They can be removed several times a day for laundering and for a bath. F. You may shower, no tub baths until cleared by your doctor. SPECIAL CARE INSTRUCTIONS: VERY IMPORTANT TO READ AND REVIEW A. There are a few signs you need to watch for after you are home. Call [facility] if you notice any of the followin. Increased severe knee pain. Some pain is expected especially when you exercise. 2. Increased swelling in your leg or knee; pain or swelling of the calf muscle in either lower leg. 3. Any fluid drainage from the incision. 4. Shortness of breath or chest pain. B. Please call [facility] at if you have any concerns or questions about your operation or recovery. The doctor or his nurse will return your call promptly. C. You must take antibiotics before dental work, bladder, bowel or other surgery. Your doctor will provide you with a permanent care to carry describing this precaution. IMPORTANT: * REMEMBER TO TAKE ASPIRIN, 81 MG, TWICE DAILY FOR 4 WEEKS UNLESS OTHERWISE DIRECTED. THIS IS YOUR BLOOD THINNER. * HIGH RISK PATIENTS MAY BE PRESCRIBED A STRONGER BLOOD THINNER. THIS WILL BE PROVIDED AT DISCHARGE. * CALL IF INCREASED PAIN, REDNESS, DRAINAGE OR FEVER GREATER THAT 101. * WEAR MARGARITA HOSE 20 HOURS PER DAY FOR 2 WEEKS. * YOU MAY HAVE A LARGE BAND-AID LIKE DRESSING (SILVERON). THIS WILL REMAIN ON YOUR INCISION FOR 7 DAYS, THEN CAN BE REMOVED. IF INCISION IS LEAKING THROUGH DRESSING, CALL THE OFFICE . FOLLOW UP VISIT: If appointment is not already scheduled: Please call [facility] to make a follow-up appointment for 2 weeks after your surgery at . Pending Studies at Discharge: No Visit Report Forms: Smoking Cessation Stand-Alone Forms: My [facility], Opioid Pain Management, Work/School Release (Inpt), Smoking Cessation Medications and DC Order Prescriptions: New aspirin 81 mg Tablet,Delayed Release (Dr/Ec) 81 mg PO BID 30 Days Qty: 60 RF: 0 celecoxib [Celebrex] 200 mg Capsule 200 mg PO BID Qty: 60 RF: 0 ondansetron HCl [Zofran] 4 mg tablet 4 mg PO Q8 PRN (Reason: nausea and vomiting) Qty: 20 RF: 0 hydrocodone-acetaminophen 5-325 mg tablet 1 - 2 tab PO Q6 PRN (Reason: pain) Qty: 18 RF: 0 Continued levothyroxine 25 mcg tablet 25 mcg PO QAM Qty: 90 RF: 0 fluticasone propionate 50 mcg/actuation spray,suspension 2 sprays INTNAS DAILY PRN (Reason: ALLERGIES) RF: 0 loratadine-pseudoephedrine 10-240 mg tablet extended release 24 hr 1 tab PO QAM PRN (Reason: Allergy Symptoms) RF: 0 pantoprazole 40 mg Tablet,Delayed Release (Dr/Ec) 40 mg PO QAM RF: 0 Discontinued celecoxib [Celebrex] 200 mg Capsule 200 mg PO QAM RF: 0 Discharge Orders: Discharge Order (Routine); Ordered 12/26/20 Ordered By: Ulisses Walsh/Other Patient Handouts: DVT Post Op Prevention, Post-Op Tips: Knee Admission Data Admit Date/Time: 12/25/20 12:40 Attending Provider: Joshua De Jesus Admit Provider: Joshua De Jesus Primary Care Provider: Lesa Varela Other Interventions: Discharge Summary Assessment (RN) Last Done: 12/26/20 12:16
== END 2020-12-26 14:16 | disposition home or self-care (01) ==
LOC: ASU 07:43 → 3E 07:43

== ENCOUNTER 2021-03-03 10:53 | Observation (INO) ==
--- NOTE | 2021-02-28 14:59 | Anesthesiology Consultation ---
Date of Service February 28, 2021 Assessment & Plan (1) Encounter for pre-operative examination: COVID screening: Per assessment on 02/28: Travel screen negative, no known COVID- 19 positive contacts or current COVID-19 related symptoms. Surgeon arranging preop COVID testing (scheduled 03/01; [place]). Awaiting results. - S/P Right TKA (12/25/20): Multiple spinal attempts made without success > changed to general. LMA#5 + PNB at [facility] - Pulmonary office visit (01/18/21): "Interstitial lung disease: Biopsy consistent with chronic aspiration. Continue conservative measures including we ight loss and keeping her head of bed elevated. She is following with GI. I will plan on seeing her in 1 years time given the significant improvement in her spirometry with repeat PFTs. She was instructed to contact us sooner with clinical status changes. Her diffusion capacity is slightly reduced but this is nonspecific. We will continue to trend over time. No indication for repeat imaging currently." F/U one year recommended. Chart Review Chart Review: Acceptable Risk for Surgery (pending preop labs) and Patient NOT seen in Pre Admission Testing History Surgery Operation Date: 03/03/21 12:30 Proposed Procedures p Right Knee Medial Retinacular Repair - Joshua De Jesus MD Height/Weight Height: 5 ft 7 in Weight: 100.244 kg Allergies Allergy/AdvReac Type Severity Reaction Status Date / Time adhesive Allergy Severe "Allergic Verified 02/28/21 13:18 shock/sepsis" with latex adhesive latex Allergy Severe "Allergic Verified 02/28/21 13:18 shock/sepsis", rash, fever fentanyl AdvReac Severe A. fib Verified 02/28/21 13:18 codeine AdvReac Mild Nausea, Verified 02/28/21 13:18 headache POLYMORES AND MOLYMORES Allergy Intermediate Swelling, Uncoded 02/28/21 13:18 fever, nausea NARCOTICS AdvReac Severe Fentanyl > Uncoded 02/28/21 13:18 a. fib Medications Home Medications Medication Instructions Recorded Confirmed Last Taken fluticasone propionate 50 2 sprays INTNAS DAILY PRN ml 03/26/20 02/28/21 Unknown mcg/actuation nasal spray,suspension loratadine-pseudoephedrine ER 10 1 tab PO QAM PRN tab 03/26/20 02/28/21 12/24/20 19:00 mg-240 mg tablet,extended [id number] levothyroxine 25 mcg tablet 25 mcg PO QAM #90 tab 11/15/20 02/28/21 12/24/20 19:00 pantoprazole 40 mg PO QAM 12/15/20 02/28/21 12/24/20 19:00 celecoxib [Celebrex] 200 mg PO BID #60 cap 12/26/20 02/28/21 Unknown hydrocodone-acetaminophen 1 - 2 tab PO Q6 PRN #18 tab 12/26/20 02/28/21 Unknown ondansetron HCl [Zofran] 4 mg PO Q8 PRN #20 tab 12/26/20 02/28/21 Unknown lactobacillus combination no.4 3,000 mmu cells PO QAM 02/28/21 02/28/21 Unknown [Probiotic] Past Medical History Medical History (Updated 02/28/21 @ 14:53 by Jenise Oconnell) Acid reflux controlled Atrial fibrillation ? remote episode 2018 in setting of significant illness/sepsis; possible medication/fentanyl reaction per patient (no a. fib noted per [facility] reviewed records from this admission > discharge summary scanned into [employer]), no recurrence/NSR on most recent EKG 04/2020 Thapa esophagus GERD (gastroesophageal reflux disease) History of sepsis 2018 (fall > non-healing right freeman wound/delayed healing) Hypothyroidism Interstitial lung disease Follows with [facility] Obesity Pulmonary fibrosis Follows with [facility] Pul[facility] Past Family History Family History Father Alzheimer disease Family hx colonic polyps Mother Pulmonary fibrosis Hypothyroidism Family history of reaction to anesthesia difficulty waking Past Surgical History Surgical History (Updated 02/28/21 @ 14:55 by Jenise Oconnell) H/O breast surgery excision lipoma H/O colonoscopy History of anesthesia reaction "Slow to wake" with remote sinus surgery History of esophageal dilatation x1 History of esophagogastroduodenoscopy (EGD) EGD: 08/19/20: MAC sedation at [facility] History of lung biopsy Right robotic thoracoscopy w/biopsy, Wedge resection (06/09/20): GA with double lumen at [facility] without issue (lung biopsy dx fibrosis) History of total knee replacement Right TKA (12/25/20): Multiple spinal attempts made without success > changed to general. LMA#5 + PNB at [facility] S/P sinus surgery S/P tonsillectomy Social History Smoking Status: Former smoker Do You Dip or Chew Tobacco: No Smoking End Date: Quit 13+ years ago (hx tobacco use 3 years) Hx Alcohol Use: Yes Alcohol type: hard liquor alcohol intake frequency: a few times a month Hx Substance Use: Yes substance use type: prescription drug Testing Electrocardiogram Date: 04/27/20 Findings: + NSR @ (64) Chest X-Ray Date: 12/22/20 FINDINGS: The heart is the upper limits of normal in size. There is underlying chronic lung disease with bilateral interstitial opacities with a peripheral distribution. There is no acute parenchymal consolidation. There is no failure. There are no significant pleural effusions. IMPRESSION: Suspected underlying chronic interstitial lung disease. No acute findings
--- NOTE | 2021-03-01 19:15 | History & Physical Report ---
Date of Service March 01, 2021 Assessment & Plan (1) Traumatic medial retinacular tear of right knee: Patient with findings consistent with failure of her medial retinacular repair post a fall 5 weeks s/p right TKA. Treatment options discussed and surgical intervention recommended. Risks, benefits and alternatives to surgery including but not limited to infection, DVT, pain, stiffness, need for revision surgery, damage to blood vessels, damage to nerves, PE, , were discussed with the patient and they wish to proceed. Plan for right knee open medial retinacular repair. Surgery scheduled for [facility] on 03/03/[address] De Jesus. Will plan on ASA 81mg BID x 1 mo post operatively for DVT prophylaxis. Will plan on HHPT vs OPPT post discharge. F/u post operatively. Encounter type: subsequent encounter Qualified Code(s): S86.811D - Strain of other muscle(s) and tendon(s) at lower leg level, right leg, subsequent encounter History of Present Illness Chief Complaint: Rigth knee pain Primary Care Provider: Lesa Varela MD 60 year old female with PMHx of hypothyroidism, GERD, interstitial lung disease, and breast Ca presents with complaint of right knee pain and instability. She underwent right TKA in December of this year. She initially was doing very well and then sustained a fall post operatively. After her fall, radiographs demonstrated laterally subluxed patella and MRI findings consistent with failure of her medial retinacular repair. She would like to proceed with surgical intervention. Patient denies headaches, sweats, fevers, chills, double vision, blurred vision, cough, sore throat, dysphagia, chest pain, sob, wheezing, n/v/d/c, numbness, tingling, fatigue, urinary symptoms, mood disorders. ROS positive for right knee pain and stiffness. Allergies Allergy/AdvReac Type Severity Reaction Status Date / Time adhesive Allergy Severe "Allergic Verified 02/28/21 13:18 shock/sepsis" with latex adhesive latex Allergy Severe "Allergic Verified 02/28/21 13:18 shock/sepsis", rash, fever fentanyl AdvReac Severe A. fib Verified 02/28/21 13:18 codeine AdvReac Mild Nausea, Verified 02/28/21 13:18 headache POLYMORES AND MOLYMORES Allergy Intermediate Swelling, Uncoded 02/28/21 13:18 fever, nausea NARCOTICS AdvReac Severe Fentanyl > Uncoded 02/28/21 13:18 a. fib Home Medications Medication Instructions Recorded Confirmed Type fluticasone propionate 50 2 sprays INTNAS DAILY PRN ml 03/26/20 02/28/21 History mcg/actuation nasal spray,suspension loratadine-pseudoephedrine ER 10 1 tab PO QAM PRN tab 03/26/20 02/28/21 History mg-240 mg tablet,extended [id number] levothyroxine 25 mcg tablet 25 mcg PO QAM #90 tab 11/15/20 02/28/21 Rx pantoprazole 40 mg PO QAM 12/15/20 02/28/21 History celecoxib [Celebrex] 200 mg PO BID #60 cap 12/26/20 02/28/21 Rx hydrocodone-acetaminophen 1 - 2 tab PO Q6 PRN #18 tab 12/26/20 02/28/21 Rx ondansetron HCl [Zofran] 4 mg PO Q8 PRN #20 tab 12/26/20 02/28/21 Rx lactobacillus combination no.4 3,000 mmu cells PO QAM 02/28/21 02/28/21 History [Probiotic] Past Med/Surg History Medical History (Updated 03/01/21 @ 19:19 by Hemal Morales) Acid reflux controlled Atrial fibrillation ? remote episode 2018 in setting of significant illness/sepsis; possible medication/fentanyl reaction per patient (no a. fib noted per [facility] reviewed records from this admission > [facility] no recurrence/NSR on most recent EKG 04/2020 Thapa esophagus GERD (gastroesophageal reflux disease) History of sepsis 2018 (fall > non-healing right freeman wound/delayed healing) Hypothyroidism Interstitial lung disease [place] [facility] [place] Obesity Pulmonary fibrosis [place] [facility] [place] Surgical History (Updated 02/28/21 @ 14:55 by Jenise Oconnell) H/O breast surgery excision lipoma H/O colonoscopy History of anesthesia reaction "Slow to wake" with remote sinus surgery History of esophageal dilatation x1 History of esophagogastroduodenoscopy (EGD) EGD: 08/19/20: MAC sedation at [facility] History of lung biopsy Right robotic thoracoscopy w/biopsy, Wedge resection (06/09/20): GA with double lumen at [facility] without issue (lung biopsy dx fibrosis) History of total knee replacement Right TKA (12/25/20): Multiple spinal attempts made without success > changed to general. LMA#5 + PNB at [facility] S/P sinus surgery S/P tonsillectomy Family History Father Alzheimer disease Family hx colonic polyps Mother Pulmonary fibrosis Hypothyroidism Family history of reaction to anesthesia difficulty waking Social History (Updated 02/28/21 @ 13:40 by Heidy Trinidad RN) Smoking Status: Former smoker Second Hand Exposure: No; Hx Alcohol Use: Yes Alcohol type: hard liquor Hx Substance Use: Yes Preferred Language: Slovak Communication Ability: Effective Open Die Inspector Required: No Beliefs That Will Affect Care: None marital status: Current Living Situation: Spouse and Family Current Living Situation Comment: PARTNER AND [employer] ADOPTED DAUGHTER current occupational status: other current occupation: NOT WORKING CURRENTLY Feels Safe at Home: Yes Assistive Devices: Glasses Review of Systems All systems reviewed & are unremarkable except as noted in HPI & below Physical Exam Constitutional: well developed and well nourished; no acute distress Eyes: PERRL, conjunctivae normal, anicteric sclerae ENMT: external ear and nose normal, oropharynx normal Neck: trachea midline, no thyromegaly Respiratory: normal respiratory effort, lungs clear to auscultation Cardiovascular: RRR, no murmur, no edema Musculoskeletal: Right knee: Incision well healed without erythema. Moderate effusion. Tenderness medial retinacular area. Painful ROM 0-110 degrees. + extensor lag with SLR. knee extension 4-/5, flexion 5/5. Palpable defect medial side patella. Stable to valgus and varus stress. Skin: no rashes, warm and dry Neurologic: patellar DTR's 2+ bilat, sensation intact Psychiatric: A+Ox3, euthymic affect Results & Data ([facility]) Laboratory Results Diagnostic Findings X-rays of her right knee demonstrate a total knee replacement with good alignment of the femoral and tibial components. She does have lateral tilt to the patella, which could be of concern due to recent trauma and could represent medial retinacular tear. MRI demonstrates communicating joint fluid consistent with medial retinacular tear
[~2021-03-03 10:53] MED LIST changes: -ACETAMINOPHEN 500 MG TAB PO SCH; -BACITRACIN INJ 50,000 UNIT VIAL ONE; -CeleBREX 200 MG CAP PO SCH; -FAMOTIDINE 20 MG TAB PO SCH; -GABAPENTIN 600 MG DOSE PO SCH; +LR 15ML/HR IV SCH; -LR 500ML BOLUS, THEN 15ML/HR IV SCH; -METOCLOPRAMIDE HCL 10 MG TABLET PO SCH; -TRANEXAMIC ACID 1,000 MG **IV Intra-op IV SCH; -TRANEXAMIC ACID 1,000 MG **IV Pre-op IV SCH; -dexAMETHasone 4 MG TAB PO SCH
[2021-03-03] MEDS ORDERED: ceFAZolin 2,000 MG/15 ML IV PUSH IV ONE (11:10)
[2021-03-03] MEDS ORDERED: BUPIVACAINE/EPINEPHRINE 0.5% MPF 1:200,000 30 ML VIAL ONE (11:57)
[2021-03-03] MEDS ORDERED: ATROPINE SULFATE 0.1 MG/ML 10ML SYR IV PRN (12:12)
[2021-03-03] MEDS ORDERED: ONDANSETRON INJ 2 MG/ML 2 ML VIAL IV PRN ×2 (12:12→16:54)
[2021-03-03] MEDS ORDERED: fentaNYL citrate 100 MCG/2 ML VIAL IV PRN (12:12)
[2021-03-03] MEDS ORDERED: ePHEDrine sulfate 50 MG/ML AMP IV PRN (12:12)
--- NOTE | 2021-03-03 12:18 | History & Physical Bridge Note ---
Date of Service March 03, 2021 History & Physical Bridge Note I have examined the patient, reviewed the History & Physical and in the interval since the performance of the History & Physical I have noted the following changes of clinical significance: no changes noted
[2021-03-03] MEDS ORDERED: MIDAZOLAM HCL 1 MG/ML 2ML VIAL ONE (12:19)
[2021-03-03] MEDS ORDERED: HYDROmorphone INJ 2 MG/ML SYR/VIAL ONE (12:52)
[2021-03-03] MEDS ORDERED: KETAMINE 50 MG/5 ML SYRINGE ONE (12:52)
[2021-03-03] MEDS ORDERED: EPINEPHrine INJ 1 MG/ML AMP ONE (13:20)
[2021-03-03] MEDS ORDERED: BUPIVACAINE 0.25% 30 ML VIAL ONE (13:20)
[2021-03-03] MEDS ORDERED: DEXAMETHASONE SOD INJ 4 MG/ML VIAL ONE (14:31)
[2021-03-03] MEDS ORDERED: PROPOFOL IV EMULSION 10 MG/ML 20 ML VIAL IV ONE (14:31)
[2021-03-03] MEDS ORDERED: ONDANSETRON INJ 2 MG/ML 2 ML VIAL ONE (14:31)
--- NOTE | 2021-03-03 14:55 | Post Operative Brief Note ---
Immediate Post Op Note v1 Date of Surgery March 03, 2021 Pre & Post Diagnosis Operation Date: 03/03/21 12:30 Pre-Op Diagnosis: Right Knee Post Traumatic Rupture Medial Retnaculum status post total knee replacement Post-Op Diagnosis: Right Knee Post Traumatic Rupture Medial Retnaculum extending into quadriceps tendon status post total knee replacement I identified the patient and participated in the time-out.: Yes Procedure Operation Date: 03/03/21 12:30 Actual Procedures p Right Knee Medial Retinacular Repair, Quadriceps Tendon Repair, Irrigation and Debridement(Right) - Joshua De Jesus MD Surgeon Joshua De Jesus MD Billet Grinder Rciky CHAPMAN Estimated Blood Loss 10 Findings Consistent with Post-Op Diagnosis Specimens None Anesthesia Type General Regional Complications none Disposition Accompanied Patient To Recovery: No Disposition: Recovery Room Overlapping Procedure I was immediately available: during the entire case.
[2021-03-03] MEDS: HYDROmorphone INJ 2 MG/ML SYR/VIAL IV PRN ×4 (15:08→15:28)
[2021-03-03] MEDS ORDERED: KETOROLAC 30 MG/ML VIAL ONE (15:18)
--- NOTE | 2021-03-03 16:01 | Anesthesiology Progress Note ---
Date of Service March 03, 2021 Anesthesia Post Procedure Vital Signs Vital Signs: Temp Pulse Pulse Resp BP BP Pulse Ox 03/03/21 15:55 36.2 C L 73 12 152/85 H 93 03/03/21 15:45 71 12 130/88 97 03/03/21 15:40 83 16 171/90 H 97 03/03/21 15:30 87 16 159/71 H 95 03/03/21 15:20 81 16 195/109 H 100 03/03/21 15:10 85 16 196/105 H 100 03/03/21 15:00 36.0 C L 92 H 16 178/115 H 100 03/03/21 11:21 36.4 C L 66 20 126/75 96 Pain Intensity Right Knee: Pain Intensity: 5 Transfer of Care Handoff Completed per policy Notes Mental Status: alert / awake / arousable and participated in evaluation Patient Amnestic to Procedure: Yes Nausea / Vomiting: adequately controlled Pain: adequately controlled Airway Patency, RR, SpO2: stable & adequate BP & HR: stable & adequate Hydration State: stable & adequate Anesthetic Complications: no major complications apparent and Pt Satisfied with anesthetic care
--- NOTE | 2021-03-03 16:37 | Operative Report (OR) ---
DATE OF OPERATION: 03/03/2021 INDICATION FOR PROCEDURE: The patient is a 60-year-old female who is status post a recent right total knee replacement. When she was about 5-1/2 weeks postop, she fell and had weakness of her quadriceps and extensor mechanism. She had decreased function afterwards. She can still walk well despite the injury. She is obese, but it was still felt that she had a defect in her VMO area and we obtained an MRI with metal subtraction and this identified a medial retinacular tear. PREOPERATIVE DIAGNOSES: Posttraumatic medial retinacular tear, status post recent right total knee replacement and obesity, BMI 36. POSTOPERATIVE DIAGNOSES: Right knee posttraumatic medial retinacular tear extending into quadriceps tendon, status post recent right total knee replacement, obesity, BMI 36.1. PROCEDURE: Right knee medial retinacular repair and quadriceps tendon repair and irrigation and debridement, right knee replacement. SURGEON: Joshua De Jesus MD. MORPHOLOGIST: Hemal Morales PA-C. ANESTHESIA: Regional block and general. OPERATIVE PROCEDURE: The patient had an adductor nerve block placed under general anesthetic. Pneumatic tourniquet was placed about her right upper thigh. Right lower extremity was prepped and draped in sterile fashion. Leg was elevated, exsanguinated with Esmarch bandage. Pneumatic tourniquet was raised to 350 mmHg. The leg was prepped with ChloraPrep. The patient's previous scar was used for incision. Skin was incised sharply and the subcutaneous tissues were dissected down to the fascia of the quadriceps tendon and medial retinaculum and patellar area. At the area of the medial retinaculum, I entered a large seroma, which showed no signs of infection, just old blood from the trauma. There was a large defect in the medial retinaculum. More careful dissection revealed some thickened fascia at the subcutaneous and deep fascia interface, which was dissected out and reflected off of the patella and medial retinaculum. Dissection was carried up proximally along the quadriceps tendon. Along the medial aspect of the quadriceps tendon, the medial retinacular tear extended all the way up into the proximal quadriceps muscle splitting the quad tendon along its medial edge. There was no transverse disruption of any of the quadriceps tendon tissue. The medial retinacular repair, distal to the VMO was all intact and healed and patella tendon was intact. The knee joint was then copiously irrigated with pulsatile saline solution. Approximately 5 liters of fluid was used. The edges of the tear was freshened up with a scalpel and the bone of the patella along the medial patella was debrided with a rongeur to expose the bone for suture anchor placement. Two 2.9 mm Q-Fix suture anchors were placed into the medial patella. Bone was somewhat soft, but the anchors held satisfactorily. The sutures were then passed through the tissue on the anterior patella and through the VMO tendon tissue and then passed again through the patellar tendon tissue and the VMO tissue to make a [id number] suture suturing soft tissue to itself and the tendon to the bone. This was performed 4 times with the sutures of the 2 anchors. These were all tied down with surgeon's knots. Then the remainder of the VMO was repaired with interrupted #2 FiberWire sutures in figure-of-8 fashion and the quadriceps tendon split was repaired fully with interrupted [id number] 2-0 FiberWire sutures. The knee was then taken through range of motion and with gravity flexion of the knee, the knee was able to flex around 45 degrees without tension on the repair. I could passively flex to about 60 and there was some tension on the repair. The repair was secured through this range of motion. The fascia underlying the fat was then repaired with [id number] #1 Vicryl sutures and then the superficial subcutaneous fat was repaired with interrupted 2-0 Vicryl sutures and the skin was closed with gabino. The patient had ADHESIVE ALLERGY, so we placed Xeroform and gauze and ABDs with no occlusive dressing and just Todd wrap from the foot to the thigh. Tourniquet was let down and the patient had normal return of circulation to the extremity and the patient tolerated the procedure well. Hemal Morales, was my assistant cross country coach. He assisted throughout the procedure as my assistant cross country coach. He assisted in prepping, draping, soft tissue retraction, and the subcutaneous and skin closure and will participate in postoperative care of the patient. There were no complications. No drains were used. Estimated blood loss was less than 10 mL. I attest to the content of the Intraoperative Record and any orders documented therein. Any exception s are noted below.
[2021-03-03] MEDS ORDERED: MAGNESIUM HYDROXIDE SUSP 30 ML UDC PO PRN (16:54)
[2021-03-03] MEDS ORDERED: FLUTICASONE PROPIONATE NA SPR 16 GM BTL PRN (16:54)
[2021-03-03] MEDS ORDERED: bisacodyL 10 MG SUPP PR PRN (16:54)
[2021-03-03] MEDS ORDERED: HYDROmorphone INJ 0.5 MG/0.5 ML SYR IV PRN (16:54)
[2021-03-03] MEDS ORDERED: METOCLOPRAMIDE HCL INJ 5 MG/ML 2 ML VIAL IV PRN (16:54)
[2021-03-03] MEDS ORDERED: NALOXONE HCL 0.4 MG/1 ML VIAL/CARP IV PRN (16:54)
[2021-03-03] MEDS ORDERED: ONDANSETRON 4 MG OD TAB PO PRN (17:12)
[2021-03-03] MEDS ORDERED: KETOROLAC 30 MG/ML VIAL IV ONE (17:19)
[2021-03-03] MEDS ORDERED: LORATADINE 10 MG TAB PO PRN (17:23)
[2021-03-03] MEDS: SODIUM CHLORIDE 0.9% 1000ML 1,000 ML IV SCH (18:32)
[2021-03-03] MEDS: HYDROCODONE/ACETAMOPHEN 5/325MG TAB PO PRN (20:36)
[2021-03-03] MEDS: ASPIRIN 81 MG ECTAB PO SCH (20:42)
[2021-03-03] MEDS: DOCUSATE SODIUM 100 MG CAP PO SCH (20:42)
[2021-03-03] MEDS ORDERED: CeleBREX 200 MG CAP PO SCH (21:00)
[2021-03-03] MEDS ORDERED: SENNA 8.6 MG TAB PO SCH (21:00)
[2021-03-03] MEDS: ceFAZolin 2000MG 2,000 MG/15 ML SYR IV SCH (22:08)
[2021-03-04] MEDS: HYDROCODONE/ACETAMOPHEN 5/325MG TAB PO PRN ×3 (03:26→13:41)
[2021-03-04] MEDS: SODIUM CHLORIDE 0.9% 1000ML 1,000 ML IV SCH (04:17)
[2021-03-04] MEDS: ceFAZolin 2000MG 2,000 MG/15 ML SYR IV SCH (05:46)
[2021-03-04 06:03] LABS: White Blood Count 8.24 K/uL (4.8-10.8)
[2021-03-04 06:04] LABS: Hemoglobin 10.5 g/dL (12.0-16.0); Mean Corpuscular Hemoglobin 30.7 pg (25-34); Mean Corpuscular Hgb Conc 32.8 g/dL (32-36); Mean Corpuscular Volume 93.6 fL (80-100); Mean Platelet Volume 9.4 fL (7.4-10.4); Platelet Count 268 K/uL (130-400); Red Blood Count 3.42 M/uL (4.2-5.4)
[2021-03-04] MEDS ORDERED: LEVOTHYROXINE SODIUM 25 MCG TABLET PO SCH (06:30)
[2021-03-04 06:36] LABS: BUN Creatinine Ratio 33.3 (10-20); Calcium 8.3 mg/dl (8.5-10.1); Creatinine Clr Calc Pharmacy 109.4 ml/min; Est GFR (African American) 110.2 ml/min; Est GFR (Non-African American) 95.1 ml/min; Potassium 3.8 mmol/L (3.5-5.1)
[2021-03-04] MEDS: DOCUSATE SODIUM 100 MG CAP PO SCH (08:36)
[2021-03-04] MEDS: ASPIRIN 81 MG ECTAB PO SCH (08:36)
[2021-03-04] MEDS ORDERED: MULTIVITAMIN TAB PO SCH (09:00)
[2021-03-04] MEDS ORDERED: PANTOprazole 40 MG TAB PO SCH (09:00)
[2021-03-04] MEDS ORDERED: ADVANCED PROBIOTIC 1250 MG CAPSULE PO SCH (09:00)
[2021-03-04] MEDS ORDERED: CeleBREX 200 MG CAP PO SCH (09:00)
--- NOTE | 2021-03-04 09:26 | Orthopedic Progress Note ---
Date of Service March 04, 2021 Assessment & Plan (1) Traumatic medial retinacular tear of right knee: Postop day 1 status post retinacular repair. PT/OT protocols. Weightbearing as tolerated with immobilizer on. Patient progressing well with her physical therapy this morning. No range of motion of the right knee at this time. DVT prophylaxis-aspirin p.o. twice daily, SCDs Pain management as written. DC planning-patient is planning on being discharged home. We discussed that she would need to wear her immobilizer at all times especially when ambulating. She may remove for bathing or dressing purposes. Admission and Anticipated Discharge Date Admission Date: March 03, 2021 Subjective Postop day 1 Patient just returned from working with physical therapy ambulating in the hallway. She is ambulating well with her immobilizer. She is having a little bit of pain this morning but otherwise has no other complaints. Denies shortness of breath, chest pain, lightheadedness. She is hoping to go home today. Physical Exam Physical Exam: Dressings are clean, dry, and intact. Calves are soft and nontender. Neurovascular intact. Toes are mobile. She has good dorsiflexion and plantarflexion of the right foot. Results & Data ([facility]) Vital Signs (Past 12 Hours) Vital Signs Temp Pulse Resp BP Pulse Ox 03/04/21 07:41 36.7 C 78 18 136/81 96 03/04/21 04:15 36.6 C 87 18 147/80 H 99 03/03/21 23:49 37.0 C 81 18 143/84 H 97 Laboratory Results Laboratory Results WBC 8.24 K/uL (4.8-10.8) 03/04/21 05:49 RBC 3.42 M/uL (4.2-5.4) L 03/04/21 05:49 Hgb 10.5 g/dL (12.0-16.0) L 03/04/21 05:49 Hct 32.0 % (37-47) L 03/04/21 05:49 MCV 93.6 fL (80-100) 03/04/21 05:49 MCH 30.7 pg (25-34) 03/04/21 05:49 MCHC 32.8 g/dL (32-36) 03/04/21 05:49 RDW Std Deviation 48.0 fL (36.4-46.3) H 03/04/21 05:49 RDW Coeff of Pearl 14.0 % (11.5-14.5) 03/04/21 05:49 Plt Count 268 K/uL (130-400) 03/04/21 05:49 MPV 9.4 fL (7.4-10.4) 03/04/21 05:49 Sodium 139 mmol/L (136-145) 03/04/21 05:49 Potassium 3.8 mmol/L (3.5-5.1) 03/04/21 05:49 Chloride 108 mmol/L (98-107) H 03/04/21 05:49 Carbon Dioxide 26 mmol/L (21-32) 03/04/21 05:49 Anion Gap 6.0 (3-11) 03/04/21 05:49 BUN 23 mg/dl (7-18) H 03/04/21 05:49 Creatinine 0.68 mg/dl (0.6-1.2) 03/04/21 05:49 Est Cr Clr Drug Dosing 109.4 ml/min 03/04/21 05:49 Est GFR ( Amer) 110.2 ml/min 03/04/21 05:49 Est GFR (Non-Af Amer) 95.1 ml/min 03/04/21 05:49 BUN/Creatinine Ratio 33.3 (10-20) H 03/04/21 05:49 Glucose 120 mg/dl (70-99) H 03/04/21 05:49 Calcium 8.3 mg/dl (8.5-10.1) L 03/04/21 05:49 (1) Traumatic medial retinacular tear of right knee Encounter type: subsequent encounter Qualified Code(s): S86.811D - Strain of other muscle(s) and tendon(s) at lower leg level, right leg, subsequent encounter
--- NOTE | 2021-03-04 10:56 | Anesthesiology Progress Note ---
Date of Service March 04, 2021 Anesthesia Post Procedure Vital Signs Vital Signs: Temp Pulse Pulse Pulse Resp BP BP 03/04/21 07:41 36.7 C 78 18 136/81 03/04/21 04:15 36.6 C 87 18 147/80 H 03/03/21 23:49 37.0 C 81 18 143/84 H 03/03/21 19:20 36.4 C L 77 18 172/88 H 03/03/21 18:22 36.6 C 73 18 148/92 H 03/03/21 17:22 36.4 C L 81 14 137/82 03/03/21 16:51 36.4 C L 78 18 146/84 H 03/03/21 16:37 36.4 C L 80 14 158/87 H 03/03/21 16:10 72 12 148/89 H 03/03/21 15:55 36.2 C L 73 12 152/85 H 03/03/21 15:45 71 12 130/88 03/03/21 15:40 83 16 171/90 H 03/03/21 15:30 87 16 159/71 H 03/03/21 15:20 81 16 195/109 H 03/03/21 15:10 85 16 196/105 H 03/03/21 15:00 36.0 C L 92 H 16 178/115 H 03/03/21 11:21 36.4 C L 66 20 126/75 Pulse Ox 03/04/21 07:41 96 03/04/21 04:15 99 03/03/21 23:49 97 03/03/21 19:20 99 03/03/21 18:22 100 03/03/21 17:22 100 03/03/21 16:51 100 03/03/21 16:37 98 03/03/21 16:10 98 03/03/21 15:55 93 03/03/21 15:45 97 03/03/21 15:40 97 03/03/21 15:30 95 03/03/21 15:20 100 03/03/21 15:10 100 03/03/21 15:00 100 03/03/21 11:21 96 Pain Intensity Right Knee: Pain Intensity: 2 Notes Mental Status: alert / awake / arousable and participated in evaluation Patient Amnestic to Procedure: Yes Nausea / Vomiting: adequately controlled Pain: improving with treatment Airway Patency, RR, SpO2: stable & adequate BP & HR: stable & adequate Hydration State: stable & adequate Anesthetic Complications: no major complications apparent and Pt Satisfied with anesthetic care
--- NOTE | 2021-03-04 18:43 | Discharge Summary ---
Date of Service March 04, 2021 Admission HPI Per Admitting Provider 60 year old female with PMHx of hypothyroidism, GERD, interstitial lung disease, and breast Ca presents with complaint of right knee pain and instability. She underwent right TKA in December of this year. She initially was doing very well and then sustained a fall post operatively. After her fall, radiographs demonstrated laterally subluxed patella and MRI findings consistent with failure of her medial retinacular repair. She would like to proceed with surgical intervention. Patient denies headaches, sweats, fevers, chills, double vision, blurred vision, cough, sore throat, dysphagia, chest pain, sob, wheezing, n/v/d/c, numbness, tingling, fatigue, urinary symptoms, mood disorders. ROS positive for right knee pain and stiffness. Admission Exam Per Admitting Provider Constitutional: well developed and well nourished; no acute distress Eyes: PERRL, conjunctivae normal, anicteric sclerae ENMT: external ear and nose normal, oropharynx normal Neck: trachea midline, no thyromegaly Respiratory: normal respiratory effort, lungs clear to auscultation Cardiovascular: RRR, no murmur, no edema Musculoskeletal: Right knee: Incision well healed without erythema. Moderate effusion. Tenderness medial retinacular area. Painful ROM 0-110 degrees. + extensor lag with SLR. knee extension 4-/5, flexion 5/5. Palpable defect medial side patella. Stable to valgus and varus stress. Skin: no rashes, warm and dry Neurologic: patellar DTR's 2+ bilat, sensation intact Psychiatric: A+Ox3, euthymic affect Principal Diagnosis Right knee medial retinacular tear, quad tendon tear Discharge Exam Constitutional well developed and well nourished; no acute distress Eyes PERRL, conjunctivae normal, anicteric sclerae ENMT external ear and nose normal, oropharynx normal Neck trachea midline, no thyromegaly Respiratory normal respiratory effort, lungs clear to auscultation Cardiovascular RRR, no murmur, no edema Skin no rashes, warm and dry Neurologic patellar DTR's 2+ bilat, sensation intact Psychiatric A+Ox3, euthymic affect Discharge Data Allergies Allergy/AdvReac Type Severity Reaction Status Date / Time adhesive Allergy Severe "Allergic Verified 03/03/21 11:10 shock/sepsis" with latex adhesive latex Allergy Severe "Allergic Verified 03/03/21 11:10 shock/sepsis", rash, fever fentanyl AdvReac Severe A. fib Verified 03/03/21 11:10 codeine AdvReac Mild Nausea, Verified 03/03/21 11:10 headache [employer] Allergy Intermediate Swelling, Uncoded 03/03/21 11:10 fever, nausea NARCOTICS AdvReac Severe Fentanyl > Uncoded 03/03/21 11:10 a. fib Procedures Performed Operation Date: 03/03/21 12:30 Actual Procedures p Right Knee Medial Retinacular Repair, (Right) - Joshua De Jesus MD s Irrigation and Debridement(Right) - Joshua De Jesus MD s Quadriceps Tendon Repair, (Right) - Joshua De Jesus MD Ordered Studies 03/03/21 12:20 US - OR guided needle placemen Routine Hospital Course (1) Traumatic medial retinacular tear of right knee: Patient presented for same day admission following right knee open medial retinacular repair and repair quad tendon on 03/03/21. She tolerated procedure well. The Patient had an uneventful hospital course. Post-operatively, her activity was progressed and well tolerated. They participated in PT. Labs remained stable- lowest hemoglobin recorded: 10.5. Pain controlled on oral medications. Please refer to daily progress notes and PT notes for complete details. After exam on 03/04/21, patient was felt to be stable for discharge home. Patient will f/u in the office in about 2 weeks for further evaluation including x-rays and incision check, sooner if having any issues or concerns. Postop day 1 status post retinacular repair. PT/OT protocols. Weightbearing as tolerated with immobilizer on. Patient progressing well with her physical therapy this morning. No range of motion of the right knee at this time. DVT prophylaxis-aspirin p.o. twice daily, SCDs Pain management as written. DC planning-patient is planning on being discharged home. We discussed that she would need to wear her immobilizer at all times especially when ambulating. She may remove for bathing or dressing purposes. Lab Results 03/04/21 03/04/21 Range/Units 05:49 05:49 WBC 8.24 (4.8-10.8) K/uL RBC 3.42 L (4.2-5.4) M/uL Hgb 10.5 L (12.0-16.0) g/dL Hct 32.0 L (37-47) % MCV 93.6 (80-100) fL MCH 30.7 (25-34) pg MCHC 32.8 (32-36) g/dL RDW Std Deviation 48.0 H (36.4-46.3) fL RDW Coeff of Pearl 14.0 (11.5-14.5) % Plt Count 268 (130-400) K/uL MPV 9.4 (7.4-10.4) fL Sodium 139 (136-145) mmol/L Potassium 3.8 (3.5-5.1) mmol/L Chloride 108 H (98-107) mmol/L Carbon Dioxide 26 (21-32) mmol/L Anion Gap 6.0 (3-11) BUN 23 H (7-18) mg/dl Creatinine 0.68 (0.6-1.2) mg/dl Est Cr Clr Drug Dosing 109.4 ml/min Est GFR ( Amer) 110.2 ml/min Est GFR (Non-Af Amer) 95.1 ml/min BUN/Creatinine Ratio 33.3 H (10-20) Glucose 120 H (70-99) mg/dl Calcium 8.3 L (8.5-10.1) mg/dl Total Time Total Time Spent Total Time Spent (In Minutes): 20 Discharge Plan Discharge Items Patient Disposition: Home - Self-Care Reason For Visit: Right Knee Post Traumatic Rupture Medial Retnaculu Discharge Diagnosis: Right knee posttraumatic rupture medial retinaculum. Activity: Per Instructions section Weightbearing: Right weightbearing Weightbearing Comment: As tolerated with immobilizer on at all times with walker. Non-emergency contact: Surgeon Call non-emergency contact if: you have any medication questions, your pain is not controlled, your temperature is above 101.5, your wound has increased redness and your wound has increased drainage Follow-up/Referrals: Lesa Varela MD [Primary Care Provider] - Diet: Regular Addtl Attending Provider Instructions: You will be weightbearing as tolerated on the right lower extremity with your immobilizer on at all times. You may remove the immobilizer for bathing, dressing changes, changing clothes. NO RANGE OF MOTION OF THE KNEE AT THIS TIME. You may change your dressing tomorrow, 03/05/2021. Keep the wound covered with a sterile gauze and you may use your Todd wrap to cover or medical tape to keep the dressing in place. You may shower in 72 hours. No tub baths. Do not soak the wound. No direct shower pressure on the wound. Clean around the wound with mild soap, do not scrub it. Pat dry and cover with a new dressing. Continue taking your aspirin twice daily. Increase your activity as tolerated. If you have problems with the immobilizer, please call the office. Follow-up with Dr. De Jesus or his PA in 10 to 14 days. Please call for appointment. [phone] Stand-Alone Forms: [facility], Opioid Pain Management, Smoking Cessation Medications and DC Order Prescriptions: New celecoxib [Celebrex] 200 mg Capsule 200 mg PO BID 30 Days Qty: 60 RF: 0 aspirin 81 mg Tablet,Delayed Release (Dr/Ec) 81 mg PO BID 30 Days Qty: 60 RF: 0 hydrocodone-acetaminophen 5-325 mg Tablet 1 - 2 tab PO Q4H PRN (Reason: pain) Qty: 30 RF: 0 cefadroxil 500 mg capsule 500 mg PO BID Qty: 14 RF: 0 Continued levothyroxine 25 mcg tablet 25 mcg PO QAM Qty: 90 RF: 0 fluticasone propionate 50 mcg/actuation spray,suspension 2 sprays INTNAS DAILY PRN (Reason: ALLERGIES) RF: 0 loratadine-pseudoephedrine 10-240 mg tablet extended release 24 hr 1 tab PO QAM PRN (Reason: Allergy Symptoms) RF: 0 pantoprazole 40 mg Tablet,Delayed Release (Dr/Ec) 40 mg PO QAM RF: 0 ondansetron HCl [Zofran] 4 mg tablet 4 mg PO Q8 PRN (Reason: nausea and vomiting) Qty: 20 RF: 0 Probiotic 3 billion cell Capsule 3,000 mmu cells PO QAM RF: 0 Discontinued celecoxib [Celebrex] 200 mg Capsule 200 mg PO BID Qty: 60 RF: 0 hydrocodone-acetaminophen 5-325 mg tablet 1 - 2 tab PO Q6 PRN (Reason: pain) Qty: 18 RF: 0 Discharge Orders: Discharge Order (Routine); Ordered 03/04/21 Ordered By: Anshul Walsh/Other Patient Handouts: Preventing Deep Vein Thrombosis Admission Data Admit Date/Time: 03/03/21 15:11 Attending Provider: Joshua De Jesus Admit Provider: Joshua De Jesus Primary Care Provider: Lesa Varela Other Interventions: Discharge Summary Assessment (RN) Last Done: 03/04/21 10:35
== END 2021-03-04 14:53 | disposition home or self-care (01) ==
LOC: 3E 10:53 → ASU 10:53